=== PATIENT | male | born 1995 | race Caucasian/White ===

== ENCOUNTER 2018-11-19 12:17 | Emergency (ER) | payer OTHER ==
[2018-11-19 12:32] VITALS: BMI 28.3
[2018-11-19] MEDS ORDERED: DIPHTH,PERTUSS(ACELL),TET 0.5 ML DISP.SYRIN IM ONE ×2 (13:41→14:08)
[2018-11-19] MEDS ORDERED: morphine CARPU-JECT 4 MG/1 ML DISP.SYRIN IVPUSH ONE (13:45)
--- NOTE | 2018-11-19 13:49 | PDOC ---
Attending Attestation - Resident Resident Name: Lroi Talbert - ED Attending Attestation I have performed the following: I have examined & evaluated the patient, The case was reviewed & discussed with the resident, I agree w/resident's findings & plan - HPI HPI: 11/19/18 14:35 23 YO RH M presenting with crush injuries to the left 3rd and 4th digit at work prior to arrival. 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 Patient endorses numbness and tingling to the left ring and pinky fingers. Denies any other injuries. Patient received 1 gram of rocephin at an urgent care prior to coming to the ER. Unknown when he had his last tetanus. He is right-handed. Allergies: NKA Past Medical History: None reported. Social history: Lives with family. No smoking. No alcohol. No illicit drugs. Surgical history: None reported. 11/19/18 22:00 11/19/18 22:01 - Physicial Exam PE: 11/19/18 13:50 General: in mild distress 2/2 pain. Vascular: 2+ DP pulses symmetric and equal. Focused MSK/Neuro Exam notable for soft compartments, Cap refill <2 sec. ROM limited 2/2 pain and swelling and bleeding. Sensation grossly intact to light touch in median/ulnar/radial distribution. left extensors, FDP and FDS limited 2/2 pain and bleeding. Skin: color normal color, warm and well perfused. +left ring and pinky finger on palmar aspect with open skin lacerations subcutaneously with exposed tendon on left ring finger. +ecchymosis to PIP on dorsal aspect of left ring finger. - Medical Decision Making 11/19/18 13:53 hpi as documented VS wnl +open crush injuries to left 4th/5th fingers. Xray of left fingers with 4th mid phalanx - open fx with phalangeal displacement , 5th mid phalanx avulsion and open fx as well.. abx given already at urgent care IV ceftriaxone tdap updated here, additional gentamicin analgesia basic labs, txs hand cs with supervisor international reservations Dr Alcazar, paged 4 times, no call back and left for the day prior to 5pm hand cs with Dr Elliott, 2nd call and made aware but unable to see patient / scheduling called to Dr Schaefer, plastics for eval and repair and proper followup came to department 7pm, wash out and repair, splint, oral abx and follow up in 1 week. . 11/19/18 14:35 11/19/18 22:01
--- NOTE | 2018-11-19 13:52 | PDOC ---
History of Present Illness - General Chief Complaint: Injury Stated Complaint: INJURY Time Seen by Provider: 11/19/18 13:39 History Source: Patient Exam Limitations: No Limitations - History of Present Illness Initial Comments: 11/19/18 13:47 23YOM without PMH who p/w left 3rd and 4th finger injury while at work this morning. He states he was working holding a heavy beam when his coworker hit the beam and it crushed his fingers. He denies having fallen, lost consciousness , or suffered any other injury as a result of the incident. He states he did not lose a large amount of blood on scene. He went to the [facility] [place] and was given IM Rocephin, then sent here. He notes mild pain at baseline which worsens when he moves the fingers. He cannot remember the date of his last tetanus update. Past History - Past Medical History Allergies/Adverse Reactions: Allergies Allergy/AdvReac Type Severity Reaction Status Date / Time No Known Allergies Allergy Verified 11/19/18 12:29 Home Medications: Ambulatory Orders Amoxicillin/Potassium Clav [Augmentin 875-125 Tablet] 1 each PO BID #14 tablet 11/19/18 COPD: No - Suicide/Smoking/Psychosocial Hx Smoking History: Never smoked Review of Systems - Review of Systems Able to Perform ROS?: Yes Comments:: 11/19/18 13:51 GEN: no fever, chills, malaise, generalized weakness, or weight change HEENT: no ear pain, sore throat, vision change, or eye pain CV: no chest pain, palpitations, lightheadedness, syncope, or edema RESP: no cough, wheezing, or SOB GI: no abdominal pain, nausea, vomiting, diarrhea, constipation, or white/black/ bloody stool : no dysuria, hematuria, incontinence, retention, bleeding, or discharge MSK: left finger crush injury and bruising and cuts, no neck/back pain, muscle weakness/pain, or joint swelling/pain NEURO: no headache, seizure, vertigo, numbness, tingling, or focal weakness PSYCH: no substance use, no behavior change SKIN: no jaundice, no rash ROS otherwise negative except as noted in HPI *Physical Exam - Vital Signs Last Vital Signs Temp Pulse Resp BP Pulse Ox 98.8 F 63 18 134/81 98 11/19/18 12:29 11/19/18 12:29 11/19/18 12:29 11/19/18 12:29 11/19/18 12:29 - Physical Exam Comments: 11/19/18 13:52 GENERAL: well-appearing, A/Ox4, no distress, answers questions appropriately, Turkmen-speaking, accompanied by family HEENT: PERRLA, EOMI, moist mucous membranes NECK/BACK: no midline ttp, no spinal stepoff or deformity, no hematoma, full ROM , neck supple CARDIOVASCULAR: regular rate/rhythm, normal S1S2, no MGR, strong peripheral pulses, capillary refill <2 seconds, extremities wwp, no edema LUNGS/RESPIRATORY: no respiratory distress, CTAB GI/ABDOMEN: symmetric [id number], normoactive BS, soft, no ttp, no midline pulsatile masses : no CVA tenderness EXTREMITIES: left 3rd digid with mild ecchymosis and 1 cm superficial abrasion overlying the dorsal PIP, left 4th finger with significant STS and ecchymosis with palmar oblique full-thickness laceration with exposed intact flexor tending , small superficial left 5th finger abrasion, subjective decreased sensation 4th and 5th digits, strength intact, good capillary refill SKIN: warm and dry, no pallor, no jaundice, no rash, no bruising, no skin breakdown, no cuts, no lesions NEUROLOGICAL: GCS 15, CN II-XII grossly intact, 5/5 strength proximally and distally, no facial droop ED Treatment Course - LABORATORY CBC & Chemistry Diagram: 11/19/18 14:00 11/19/18 13:41 - RADIOLOGY Radiology Studies Ordered: Category Date Time Status FINGER(S) LEFT [RAD] Stat Radiology 11/19/18 13:46 Ordered HAND- LEFT [RAD] Stat Radiology 11/19/18 13:46 Ordered Medical Decision Making - Medical Decision Making 11/19/18 13:57 23YOM p/w crush injury to non-dominant left hand/fingers with laceration and exposed tendon. Initial Vital Signs Temp Pulse Resp BP Pulse Ox 98.8 F 63 18 134/81 98 11/19/18 12:29 11/19/18 12:29 11/19/18 12:29 11/19/18 12:29 11/19/18 12:29 Exam: As noted in Physical Exam section. DDX IBNLT: Full-thickness laceration with possible injury to nerves, blood vessels, tendon sheath, tendon, or bone. W/U ordered: labs as noted below, x-ray hand/finger TX ordered: tdap, morphine, gentamicin RAD/FINGER(S) LEFT Left fingers: Trauma. Pain. 4 views of the left fingers reveal acute fractures of the mid portion of the middle phalanx of the left fourth digit with swelling and the distal end of the fifth digit middle phalanx involving the articular surface. There is swelling as well. The other bones appear intact. RAD/HAND- LEFT Left hand: Injury. Pain. 4 views of the left hand have been submitted. There are fractures of the middle phalanx of the left fourth digit as well as the fifth digit. The fourth digit fracture is in the mid portion of the phalanx. The fifth digit fracture involves the distal end of the middle phalanx and the articular surface. Other bones are intact. Correlation recommended. Laboratory Tests 11/19/18 11/19/18 11/19/18 13:41 14:00 14:00 WBC 12.7 H RBC 4.68 Hgb 14.8 Hct 41.5 MCV 88.6 MCH 31.5 MCHC 35.6 RDW 12.7 Plt Count 239 MPV 9.3 Absolute Neuts (auto) 10.2 H Neutrophils % 80.0 Lymphocytes % 12.3 Monocytes % 6.5 Eosinophils % 1.0 Basophils % 0.2 Nucleated RBC % 0 PT with INR INR PTT (Actin FS) Sodium 137 Potassium 4.1 Chloride 106 Carbon Dioxide 28 Anion Gap 3 L BUN 15 Creatinine 0.9 Creat Clearance w eGFR 103.67 Random Glucose 100 Calcium 9.2 Total Bilirubin 0.5 AST 20 ALT 36 Alkaline Phosphatase 86 Total Protein 7.6 Albumin 4.2 Blood Type B POSITIVE Antibody Screen Negative 11/19/18 11/19/18 14:00 14:00 WBC RBC Hgb Hct MCV MCH MCHC RDW Plt Count MPV Absolute Neuts (auto) Neutrophils % Lymphocytes % Monocytes % Eosinophils % Basophils % Nucleated RBC % PT with INR Cancelled 11.90 INR Cancelled 1.01 PTT (Actin FS) 30.5 Sodium Potassium Chloride Carbon Dioxide Anion Gap BUN Creatinine Creat Clearance w eGFR Random Glucose Calcium Total Bilirubin AST ALT Alkaline Phosphatase Total Protein Albumin Blood Type Antibody Screen 11/19/18 15:[address] Alcazar for consult and his office states he is in a patient room but they will have him call back. 11/19/18 16:19 2 more calls placed to Dr. Alcazar and response was awaited. I spoke with Dr. Alcazar's receptionist nurse who states he is at an appointment. 11/19/18 16:[address] Schaefer who kindly and graciously will come to see the patient , examine, wash out wound, and splint. 11/19/18 19:00 [facility] Knowles pending evaluation and washout by Dr. Schaefer. *DC/Admit/Observation/Transfer Diagnosis at time of Disposition: Open fracture of phalanx of finger Qualifiers: Encounter type: initial encounter Finger: ring finger Phalanx: middle Fracture alignment: displaced Laterality: left Qualified Code(s): S62.625B - Displaced fracture of middle phalanx of left ring finger, initial encounter for open fracture - Discharge Dispostion Disposition: HOME Condition at time of disposition: Fair - Prescriptions Prescriptions: Amoxicillin/Potassium Clav [Augmentin 875-125 Tablet] 1 each PO BID #14 tablet - Referrals Referrals: Tomi Schaefer MD [Staff Physician] - - Patient Instructions Printed Discharge Instructions: How to Use a Sling Additional Instructions: Follow up with Dr. Schaefer in one week. 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 Come back to the emergency department for any new, worsening or concerning symptom. - Post Discharge Activity
[2018-11-19] MEDS ORDERED: morphine SULFATE 4 MG/ML VIAL ONE (14:07)
[2018-11-19 14:21] LABS: BASO % 0.2 % (0-2.0); HEMATOCRIT 41.5 % (35.4-49); HEMOGLOBIN 14.8 GM/dL (11.7-16.9); LYMPH % 12.3 % (8-40); MCH 31.5 pg (25.7-33.7); MCHC 35.6 g/dl (32.0-35.9); MEAN CELL VOLUME 88.6 fl (80-96); MEAN PLT VOLUME 9.3 fl (7.5-11.1); MONO % 6.5 % (3.8-10.2); PLATELET COUNT 239 K/MM3 (134-434); RBC 4.68 M/mm3 (4.00-5.60); RDW 12.7 % (11.9-15.9); WHITE BLOOD COUNT 12.7 K/mm3 (4.0-10.0)
[2018-11-19 14:27] LABS: INR 1.01 (0.83-1.09); PROTHROMBIN TIME (PATIENT) 11.9 SEC (9.7-13.0)
[2018-11-19 14:29] LABS: ACTIVATED PTT 30.5 SECONDS (25.2-36.5)
[2018-11-19 14:44] LABS: ALBUMIN 4.2 g/dl (3.4-5.0); ALK PHOS 86 U/L (45-117); ANION GAP 3 MMOL/L (8-16); BILIRUBIN,TOTAL 0.5 mg/dL (0.2-1); BLOOD UREA NITROGEN 15 mg/dL (7-18); CALCIUM 9.2 mg/dL (8.5-10.1); CHLORIDE 106 mmol/L (98-107); CO2 28 mmol/L (21-32); CREATININE 0.9 mg/dL (0.55-1.3); GLUCOSE,RANDOM 100 mg/dL (74-106); POTASSIUM 4.1 mmol/L (3.5-5.1); SGOT/AST 20 U/L (15-37); SGPT/ALT 36 U/L (13-61); SODIUM 137 mmol/L (136-145); TOT PROT 7.6 g/dl (6.4-8.2)
[2018-11-19] MEDS ORDERED: GENTAMICIN INJECTION 350 MG in DEXTROSE 5%-WATER - 250 ML IVPB SCH (16:00)
[2018-11-19 19:12] VITALS: BP 140/86; PULSE 80; TEMP 99.2
[2018-11-19] MEDS ORDERED: LIDOCAINE HCL 2% (20ML MULTI-DOSE VIAL) NR ONE (19:16)
--- NOTE | 2018-11-19 20:17 | PN ---
Progress Note (short form) - Note Progress Note: Open fractures to each left ring and small MP. Reduction attempted with washout and closure. IV abx given, Oral ABX given and splint applied. Post reduction film pending. Plan strict elevation with sling and f/u one week Schaefer for assessment for fracture treatment.
--- NOTE | 2018-11-19 20:36 | PDOC ---
*Physical Exam - Vital Signs Last Vital Signs Temp Pulse Resp BP Pulse Ox 99.2 F 80 16 140/86 98 11/19/18 19:11 11/19/18 19:11 11/19/18 19:11 11/19/18 19:11 11/19/18 19:11 ED Treatment Course - LABORATORY CBC & Chemistry Diagram: 11/19/18 14:00 11/19/18 13:41 - ADDITIONAL ORDERS Additional order review: Laboratory Results 11/19/18 11/19/18 11/19/18 14:00 14:00 14:00 PT with INR 11.90 Cancelled INR 1.01 Cancelled PTT (Actin FS) 30.5 Sodium Potassium Chloride Carbon Dioxide Anion Gap BUN Creatinine Creat Clearance w eGFR Random Glucose Calcium Total Bilirubin AST ALT Alkaline Phosphatase Total Protein Albumin Blood Type B POSITIVE Antibody Screen Negative 11/19/18 13:41 PT with INR INR PTT (Actin FS) Sodium 137 Potassium 4.1 Chloride 106 Carbon Dioxide 28 Anion Gap 3 L BUN 15 Creatinine 0.9 Creat Clearance w eGFR 103.67 Random Glucose 100 Calcium 9.2 Total Bilirubin 0.5 AST 20 ALT 36 Alkaline Phosphatase 86 Total Protein 7.6 Albumin 4.2 Blood Type Antibody Screen 11/19/18 14:00 RBC 4.68 MCV 88.6 MCHC 35.6 RDW 12.7 MPV 9.3 Neutrophils % 80.0 Lymphocytes % 12.3 Monocytes % 6.5 Eosinophils % 1.0 Basophils % 0.2 - RADIOLOGY Radiology Studies Ordered: Category Date Time Status FINGER(S) LEFT [RAD] Stat Radiology 11/19/18 19:44 Ordered - Medications Given in the ED: ED Medications Discontinued Medications Generic Name Dose Route Start Last Admin Trade Name Freq PRN Reason Stop Dose Admin Diphtheria/Tetanus/Acell Pertussis 0.5 ml 11/19/18 13:41 11/19/18 14:16 Boostrix - IM 11/19/18 13:42 0.5 ml .ONCE ONE Administration Morphine Sulfate 4 mg 11/19/18 13:45 11/19/18 14:16 Morphine Injection - IVPUSH 11/19/18 13:46 4 mg ONCE ONE Administration *DC/Admit/Observation/Transfer Diagnosis at time of Disposition: Open fracture of phalanx of finger Qualifiers: Encounter type: initial encounter Finger: ring finger Phalanx: middle Fracture alignment: displaced Laterality: left Qualified Code(s): S62.625B - Displaced fracture of middle phalanx of left ring finger, initial encounter for open fracture - Discharge Dispostion Disposition: HOME Condition at time of disposition: Fair Decision to Admit order: No - Prescriptions Prescriptions: Amoxicillin/Potassium Clav [Augmentin 875-125 Tablet] 1 each PO BID #14 tablet - Referrals Referrals: Tomi Schaefer MD [Staff Physician] - - Patient Instructions Printed Discharge Instructions: How to Use a Sling Additional Instructions: Follow up with Dr. Schaefer in one week. 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 Come back to the emergency department for any new, worsening or concerning symptom. - Post Discharge Activity
--- NOTE | 2018-11-21 08:48 | OP ---
DATE OF OPERATION: 11/19/2018 PROCEDURE: Open reduction and splint stabilization of left ring finger middle phalanx displaced open fracture with 3-cm complex wound and tissue closure with debridement of left ring finger, left small finger open reduction splint stabilization of open middle phalanx intraarticular distal interphalangeal fracture dislocation with 2-cm simple laceration, washout and repair to left open fracture of small finger. ATTENDING SURGEON: Tomi Molina MD HISTORY: Patient is seen at the request of ER physician, Dr. Yong Bang. The history is that this is a 23-year-old male, who at work suffered a crush injury from an I-beam to the left hand. He is right-hand dominant. He was brought into the [facility] Emergency Room for evaluation and treatment. PAST MEDICAL AND SURGICAL HISTORY: Noncontributory. REVIEW OF SYSTEMS: Negative for bleeding, coagulopathy, . PHYSICAL EXAMINATION: Head and neck: Atraumatic, normocephalic. Heart: Regular rate and rhythm. Lungs: Clear to auscultation. Extremities: Warm and well perfused. There is normal distal sensation to each of the radial and ulnar border of the injured left ring and small finger. There are clear open fractures with exposed tendon and gross deformity to each of the left ring and small fingers. Normal distal perfusion. X-ray shows a midshaft middle phalanx transverse unstable fracture of the left ring finger and a separate left small finger middle phalanx distal intraarticular fracture dislocation. Patient was counseled on the need for washout of wounds, attempt at reduction and stabilization and possible further surgery for percutaneous pinning at a later point. He understands and agrees to proceed. DESCRIPTION OF PROCEDURE: The fingers were each given 2.5 mL of 2% lidocaine digital block, after which using distal traction and manual manipulation on the open fractures, the reduction is manually achieved; however, it is not able to be well stabilized. This is done for each of the left ring finger and the left small finger. The wounds were then copiously irrigated with normal saline and treated with betadine, after which the left small finger is adjusted by closure with a series of interrupted 2 cm of simple interrupted 4-0 nylon suture. The ring finger is more complex with a stellate laceration with exposed tendon overlying the middle phalanx. Tissue has to be debrided and mobilized. A closure is performed; however, complete closure is not possible without strangulating the finger. Stitches were removed until the fingertip was pink and viable. Good tendon coverage is able to be achieved. Bacitracin and Xeroform, Gloria wrap, and AlumaFoam splints are applied. Patient is then sent for postreduction x-ray, which shows inadequate reduction. The patient is counseled on this and the need for further surgery after the wound has begun to heal. It should be noted that the large stellate laceration with tissue loss on the left ring finger is 3 cm in total length. TOMI MOLINA M.D. [id number]
== END 2018-11-19 20:45 | disposition home or self-care (01) ==
LOC: JER 12:17
PROC: 3E0234Z Introduction of Serum, Toxoid and Vaccine into Muscle, Percutaneous Approach (ICD-10-PCS; principal; 2018-11-19)
PROC: 3E03329 Introduction of Other Anti-infective into Peripheral Vein, Percutaneous Approach (ICD-10-PCS; 2018-11-19)
PROC: 3E033NZ Introduction of Analgesics, Hypnotics, Sedatives into Peripheral Vein, Percutaneous Approach (ICD-10-PCS; 2018-11-19)
PROC: 2W3KX1Z Immobilization of Left Finger using Splint (ICD-10-PCS; 2018-11-19)
PROC: 0PSVXZZ Reposition Left Finger Phalanx, External Approach (ICD-10-PCS; 2018-11-19)
DX: S67.195A Crushing injury of left ring finger, initial encounter (principal); S62.625B Displaced fracture of middle phalanx of left ring finger, initial encounter for open fracture; S67.193A Crushing injury of left middle finger, initial encounter; W23.0XXA Caught, crushed, jammed, or pinched between moving objects, initial encounter; Y93.89 Activity, other specified; Y92.63 Factory as the place of occurrence of the external cause; Y99.0 Civilian activity done for income or pay
CPT/HCPCS: 26725; 36415; 73130-TC-LT-FY; 73140-TC-LT-FY; 80053; 85025; 85610; 85730; 86850; 86900; 86901; 90471; 90715; 96365; 96375; 99283-25